=== PATIENT | male | born 1960 | race African-American/Black ===

== ENCOUNTER 2020-12-06 20:52 | Emergency (ER) | payer SELFPAY ==
[~2020-12-06] VITALS: Ht 170.2 cm; Wt 85.3 kg
[2020-12-06] MEDS ORDERED: LISINOPRIL5 MG PO (21:06)
[2020-12-06] MEDS ORDERED: HYDROCODON-ACE1 EA10 PO (23:28)
== END 2020-12-06 23:49 | disposition home or self-care (01) ==
LOC: ED 20:52
DX: B34.9 Viral infection, unspecified (principal); I10 Essential (primary) hypertension; Z79.899 Other long term (current) drug therapy
CPT/HCPCS: 71045; 80053; 81001; 85025; 96374; 96375; 99284-25; J1170; J1200; J1885; J2405; J2765; J7030